=== PATIENT | male | born 1945 | race Asian ===

== ENCOUNTER 2021-08-24 09:41 | Inpatient (IN) | payer OTHER ==
[2021-08-24] MEDS ORDERED: SODIUM CHLORIDE 0.9% 500 ML INFUS.BAG IV ONE ×2 (10:07→13:26)
[2021-08-24] MEDS ORDERED: ONDANSETRON 4 MG/2 ML VIAL IVPUSH ONE ×2 (10:07→12:44)
[2021-08-24] MEDS ORDERED: ACETAMINOPHEN 1000 MG/100 ML BAG IVPB ONE (10:07)
[2021-08-24] MEDS ORDERED: ACETAMINOPHEN INJECTION 100 ML IVPB ONE (10:18)
[2021-08-24] MEDS ORDERED: ONDANSETRON 4 MG/2 ML VIAL ONE ×2 (10:18→12:53)
[2021-08-24 10:40] LABS: BASO % 0.3 % (0-2.0); EOS % 0.3 % (0-4.5); HEMATOCRIT 36.8 % (35.4-49); HEMOGLOBIN 12.4 GM/dL (11.7-16.9); LYMPH % 6.2 % (8-40); MCH 32.5 pg (25.7-33.7); MCHC 33.6 g/dl (32.0-35.9); MEAN CELL VOLUME 96.7 fl (80-96); MEAN PLT VOLUME 7.2 fl (7.5-11.1); MONO % 4.3 % (3.8-10.2); NEUT % 88.9 % (42.8-82.8); PLATELET COUNT 410 10^3/uL (134-434); RBC 3.81 M/mm3 (4.00-5.60); RDW 13.9 % (11.9-15.9); WHITE BLOOD COUNT 13.6 K/mm3 (4.0-10.0)
[2021-08-24 11:05] LABS: CALCIUM 8.9 mg/dL (8.5-10.1)
[2021-08-24] MEDS ORDERED: morphine CARPU-JECT 4 MG/1 ML DISP.SYRIN IVPUSH ONE ×2 (11:29→15:23)
[2021-08-24 11:34] LABS: ALBUMIN 2.3 g/dl (3.4-5.0); BILIRUBIN,TOTAL 0.4 mg/dL (0.2-1); BLOOD UREA NITROGEN 30.2 mg/dL (7-18); CREATININE 1.1 mg/dL (0.55-1.3); MAGNESIUM 2.4 mg/dL (1.8-2.4); TOT PROT 6.3 g/dl (6.4-8.2)
[2021-08-24 11:41] LABS: LACTIC ACID 2.5 mmol/L (0.4-2.0)
[2021-08-24] MEDS ORDERED: morphine SULFATE 4 MG/ML VIAL ONE ×2 (11:51→15:42)
[2021-08-24] MEDS ORDERED: AZITHROMYCIN IVPB 500 MG in DEXTROSE 5%-WATER - 250 ML IVPB ONE (14:28)
[2021-08-24] MEDS ORDERED: CEFTRIAXONE 1 GM/50 ML BAG ONE (15:42)
[2021-08-24] MEDS ORDERED: AZITHROMYCIN IVPB 500 MG/250 ML BAG IVPB ONE (16:11)
[2021-08-24] MEDS ORDERED: ACETAMINOPHEN 325 MG TABLET (FP) PO PRN (17:41)
[2021-08-25] MEDS: LEVOTHYROXINE NA 25 MCG TABLET (FP) PO SCH (08:26)
[2021-08-25] MEDS: TAMSULOSIN HCL 0.4 MG CAP PO SCH (08:26)
[2021-08-25 09:14] LABS: HEMATOCRIT 33.2 % (35.4-49); HEMOGLOBIN 11.4 GM/dL (11.7-16.9); MCHC 34.5 g/dl (32.0-35.9); MEAN CELL VOLUME 95.6 fl (80-96); MEAN PLT VOLUME 7.2 fl (7.5-11.1); PLATELET COUNT 337 10^3/uL (134-434); RBC 3.47 M/mm3 (4.00-5.60); RDW 13.4 % (11.9-15.9); WHITE BLOOD COUNT 19.4 K/mm3 (4.0-10.0)
[2021-08-25 09:34] LABS: CREATININE 0.9 mg/dL (0.55-1.3)
[2021-08-25 09:36] LABS: BILIRUBIN,TOTAL 0.3 mg/dL (0.2-1); TOT PROT 5.3 g/dl (6.4-8.2)
[2021-08-25] MEDS ORDERED: CEFTRIAXONE 1,000 MG in DEXTROSE 5%-WATER - 50 ML IVPB SCH (10:00)
[2021-08-25] MEDS ORDERED: AZITHROMYCIN 250 MG TABLET PO SCH ×2 (10:00)
[2021-08-25] MEDS ORDERED: TRIMETHOBENZAMIDE HCL 200MG/2ML INJ IM PRN (10:00)
[2021-08-25 10:09] LABS: ALBUMIN 1.6 g/dl (3.4-5.0); CALCIUM 7.5 mg/dL (8.5-10.1)
[2021-08-25] MEDS ORDERED: DEXTROSE 5%-WATER - 50 ML IVPB ONE (10:11)
[2021-08-25] MEDS ORDERED: cefTRIAXone SODIUM 1 GM VIAL ONE (10:11)
[2021-08-25] MEDS: ENOXAPARIN NA (PORCINE) 40 MG/0.4 ML DISP.SYRIN SQ SCH (10:37)
[2021-08-25] MEDS: amLODIPine BESYLATE 10 MG TABLET (FP) PO SCH (10:37)
[2021-08-25] MEDS: LOSARTAN POTASSIUM 50 MG TABLET PO SCH (10:37)
[2021-08-25] MEDS: ACETAMINOPHEN 1000 MG/100 ML BAG IVPB PRN ×2 (10:37→17:24)
[2021-08-25] MEDS: CEFTRIAXONE 1 GM in DEXTROSE 5%-WATER - 50 ML IVPB SCH (11:07)
[2021-08-25 11:38] LABS: EPI CELLS 20 /uL (0-25.1); HYALINE CASTS 7 /uL (0-3.1); URINE APPEARANCE CLEAR; URINE BACTERIA 5 /uL (0-1359); URINE BILIRUBIN NEGATIVE (NEGATIVE); URINE COLOR YELLOW; URINE GLUCOSE (UA) NEGATIVE (NEGATIVE); URINE KETONE NEGATIVE (NEGATIVE); URINE LEUK ESTERASE NEGATIVE (NEGATIVE); URINE NITRITE NEGATIVE (NEGATIVE); URINE PROTEIN 3+ (NEGATIVE); URINE RBC 10 /uL (0-23.9); URINE UROBILINOGEN 0.2 mg/dL (0.2-1.0); URINE WBC 8 /uL (0-25.8)
[2021-08-25] MEDS ORDERED: SODIUM CHLORIDE 1,000 ML IV SCH (12:15)
[2021-08-25] MEDS: ATORVASTATIN CA 20 MG TABLET (FP) PO SCH (21:17)
[2021-08-26] MEDS: LEVOTHYROXINE NA 25 MCG TABLET (FP) PO SCH (06:07)
[2021-08-26] MEDS: TAMSULOSIN HCL 0.4 MG CAP PO SCH (06:07)
[2021-08-26 09:05] LABS: HEMATOCRIT 32.9 % (35.4-49); HEMOGLOBIN 11.1 GM/dL (11.7-16.9); MCH 32.2 pg (25.7-33.7); MCHC 33.6 g/dl (32.0-35.9); MEAN CELL VOLUME 95.9 fl (80-96); MEAN PLT VOLUME 7.3 fl (7.5-11.1); PLATELET COUNT 351 10^3/uL (134-434); RBC 3.43 M/mm3 (4.00-5.60); RDW 13.7 % (11.9-15.9)
[2021-08-26] MEDS ORDERED: cefTRIAXone SODIUM 1 GM VIAL ONE (09:16)
[2021-08-26] MEDS ORDERED: DEXTROSE 5%-WATER - 50 ML IVPB ONE (09:16)
[2021-08-26] MEDS: LOSARTAN POTASSIUM 50 MG TABLET PO SCH (09:20)
[2021-08-26] MEDS: amLODIPine BESYLATE 10 MG TABLET (FP) PO SCH (09:20)
[2021-08-26] MEDS: CEFTRIAXONE 1 GM in DEXTROSE 5%-WATER - 50 ML IVPB SCH (09:20)
[2021-08-26 09:33] LABS: CALCIUM 7.5 mg/dL (8.5-10.1)
[2021-08-26 09:36] LABS: CREATININE 0.9 mg/dL (0.55-1.3)
[2021-08-26] MEDS ORDERED: POTASSIUM CHLORIDE TABS 20 MEQ TABLET.ER (FP) PO ONE ×2 (15:25→22:00)
[2021-08-26] MEDS ORDERED: ACETAMINOPHEN 500 MG TABLET (FP) PO PRN (15:27)
[2021-08-26] MEDS: AZITHROMYCIN 500 MG TABLET PO SCH (15:58)
[2021-08-26] MEDS ORDERED: LACTATED RINGERS SOLUTION 1,000 ML/1,000 ML INFUS.BAG IV SCH (17:00)
[2021-08-26] MEDS: oxyCODONE HCL 5 MG TABLET PO PRN (18:39)
[2021-08-26] MEDS: ATORVASTATIN CA 20 MG TABLET (FP) PO SCH (21:16)
[2021-08-26] MEDS: LACTOBACILLUS ACIDOPHILUS 1 TABLET PO SCH (21:17)
[2021-08-27] MEDS: TAMSULOSIN HCL 0.4 MG CAP PO SCH (06:08)
[2021-08-27] MEDS: LEVOTHYROXINE NA 25 MCG TABLET (FP) PO SCH (06:08)
[2021-08-27 09:11] LABS: BLOOD UREA NITROGEN 14.7 mg/dL (7-18); CALCIUM 7.9 mg/dL (8.5-10.1); MAGNESIUM 2.3 mg/dL (1.8-2.4)
[2021-08-27 09:12] LABS: HEMATOCRIT 30.8 % (35.4-49); HEMOGLOBIN 10.6 GM/dL (11.7-16.9); MCH 32.8 pg (25.7-33.7); MCHC 34.3 g/dl (32.0-35.9); MEAN CELL VOLUME 95.7 fl (80-96); MEAN PLT VOLUME 7.3 fl (7.5-11.1); PLATELET COUNT 346 10^3/uL (134-434); RBC 3.22 M/mm3 (4.00-5.60); RDW 13.5 % (11.9-15.9); WHITE BLOOD COUNT 15.4 K/mm3 (4.0-10.0)
[2021-08-27 09:14] LABS: PHOSPHOROUS 2.3 mg/dL (2.5-4.9)
[2021-08-27] MEDS ORDERED: DEXTROSE 5%-WATER - 50 ML IVPB ONE (10:07)
[2021-08-27] MEDS ORDERED: cefTRIAXone SODIUM 1 GM VIAL ONE (10:07)
[2021-08-27] MEDS: AZITHROMYCIN 500 MG TABLET PO SCH (10:16)
[2021-08-27] MEDS: LACTOBACILLUS ACIDOPHILUS 1 TABLET PO SCH ×2 (10:16→21:39)
[2021-08-27] MEDS: amLODIPine BESYLATE 10 MG TABLET (FP) PO SCH (10:16)
[2021-08-27] MEDS: LOSARTAN POTASSIUM 50 MG TABLET PO SCH (10:16)
[2021-08-27 10:57] LABS: N-TERMINAL BNP 1456.6 pg/ml (5-450)
[2021-08-27] MEDS ORDERED: FUROSEMIDE 40 MG/4 ML INJECTABLE VIAL IVPUSH ONE (11:00)
[2021-08-27] MEDS: CEFTRIAXONE 1 GM in DEXTROSE 5%-WATER - 50 ML IVPB SCH (12:34)
[2021-08-27] MEDS: oxyCODONE HCL 5 MG TABLET PO PRN (13:52)
[2021-08-27] MEDS ORDERED: SODIUM PHOSPHATE - 15 MM in SODIUM CHLORIDE 250 ML IVPB ONE (18:00)
[2021-08-27] MEDS: ENOXAPARIN NA (PORCINE) 40 MG/0.4 ML DISP.SYRIN SQ SCH (18:21)
[2021-08-27] MEDS: ATORVASTATIN CA 20 MG TABLET (FP) PO SCH (21:39)
[2021-08-28] MEDS: TAMSULOSIN HCL 0.4 MG CAP PO SCH (06:05)
[2021-08-28] MEDS: LEVOTHYROXINE NA 25 MCG TABLET (FP) PO SCH (06:05)
[2021-08-28 08:58] LABS: BASO % 0.4 % (0-2.0); EOS % 1.4 % (0-4.5); HEMATOCRIT 32.5 % (35.4-49); HEMOGLOBIN 11.4 GM/dL (11.7-16.9); LYMPH % 14.7 % (8-40); MCH 33.1 pg (25.7-33.7); MCHC 35.1 g/dl (32.0-35.9); MEAN CELL VOLUME 94.4 fl (80-96); MONO % 5.3 % (3.8-10.2); NEUT % 78.2 % (42.8-82.8); PLATELET COUNT 335 10^3/uL (134-434); RBC 3.44 M/mm3 (4.00-5.60); RDW 13.7 % (11.9-15.9); WHITE BLOOD COUNT 10.6 K/mm3 (4.0-10.0)
[2021-08-28 09:13] LABS: BLOOD UREA NITROGEN 12.1 mg/dL (7-18)
[2021-08-28 09:15] LABS: CALCIUM 7.4 mg/dL (8.5-10.1)
[2021-08-28 09:16] LABS: CREATININE 0.9 mg/dL (0.55-1.3); MAGNESIUM 2.1 mg/dL (1.8-2.4); PHOSPHOROUS 2.9 mg/dL (2.5-4.9)
[2021-08-28] MEDS ORDERED: cefTRIAXone SODIUM 1 GM VIAL ONE (10:56)
[2021-08-28] MEDS ORDERED: DEXTROSE 5%-WATER - 50 ML IVPB ONE (10:56)
[2021-08-28] MEDS: LACTOBACILLUS ACIDOPHILUS 1 TABLET PO SCH ×2 (10:59→22:05)
[2021-08-28] MEDS: amLODIPine BESYLATE 10 MG TABLET (FP) PO SCH (10:59)
[2021-08-28] MEDS: LOSARTAN POTASSIUM 50 MG TABLET PO SCH (10:59)
[2021-08-28] MEDS: ENOXAPARIN NA (PORCINE) 40 MG/0.4 ML DISP.SYRIN SQ SCH (10:59)
[2021-08-28] MEDS: AZITHROMYCIN 500 MG TABLET PO SCH (11:04)
[2021-08-28] MEDS: CEFTRIAXONE 1 GM in DEXTROSE 5%-WATER - 50 ML IVPB SCH (12:40)
[2021-08-28 15:08] LABS: SARS-CoV-2 NAA Not Detected (Not Detected)
[2021-08-28] MEDS: ATORVASTATIN CA 20 MG TABLET (FP) PO SCH (22:05)
[2021-08-29] MEDS: TAMSULOSIN HCL 0.4 MG CAP PO SCH (06:38)
[2021-08-29] MEDS: LEVOTHYROXINE NA 25 MCG TABLET (FP) PO SCH (06:38)
[2021-08-29 08:59] LABS: BASO % 0.7 % (0-2.0); EOS % 2.2 % (0-4.5); HEMATOCRIT 35.3 % (35.4-49); HEMOGLOBIN 12.1 GM/dL (11.7-16.9); MCH 32.5 pg (25.7-33.7); MCHC 34.2 g/dl (32.0-35.9); MEAN PLT VOLUME 7.2 fl (7.5-11.1); MONO % 6.7 % (3.8-10.2); NEUT % 68.4 % (42.8-82.8); PLATELET COUNT 369 10^3/uL (134-434); RBC 3.72 M/mm3 (4.00-5.60); RDW 13.6 % (11.9-15.9); WHITE BLOOD COUNT 7.7 K/mm3 (4.0-10.0)
[2021-08-29 09:17] LABS: CALCIUM 7.6 mg/dL (8.5-10.1)
[2021-08-29 09:18] LABS: BLOOD UREA NITROGEN 9.4 mg/dL (7-18); MAGNESIUM 1.9 mg/dL (1.8-2.4)
[2021-08-29 09:20] LABS: CREATININE 0.8 mg/dL (0.55-1.3); PHOSPHOROUS 2.4 mg/dL (2.5-4.9)
[2021-08-29 09:22] LABS: BILIRUBIN,TOTAL 0.3 mg/dL (0.2-1); TOT PROT 5.2 g/dl (6.4-8.2)
[2021-08-29 09:23] LABS: ALBUMIN 1.9 g/dl (3.4-5.0)
[2021-08-29] MEDS ORDERED: cefTRIAXone SODIUM 1 GM VIAL ONE (10:57)
[2021-08-29] MEDS ORDERED: DEXTROSE 5%-WATER - 50 ML IVPB ONE (10:57)
[2021-08-29] MEDS: LOSARTAN POTASSIUM 50 MG TABLET PO SCH (11:00)
[2021-08-29] MEDS: amLODIPine BESYLATE 10 MG TABLET (FP) PO SCH (11:00)
[2021-08-29] MEDS: ENOXAPARIN NA (PORCINE) 40 MG/0.4 ML DISP.SYRIN SQ SCH (11:00)
[2021-08-29] MEDS ORDERED: POTASSIUM CHLORIDE TABS 20 MEQ TABLET.ER (FP) PO SCH ×2 (11:00→22:00)
[2021-08-29] MEDS: CEFTRIAXONE 1 GM in DEXTROSE 5%-WATER - 50 ML IVPB SCH (11:00)
[2021-08-29] MEDS: LACTOBACILLUS ACIDOPHILUS 1 TABLET PO SCH ×2 (11:01→22:18)
[2021-08-29] MEDS ORDERED: AZITHROMYCIN IVPB 500 MG/250 ML BAG IVPB SCH (14:15)
[2021-08-29] MEDS: ENALAPRIL MALEATE 10 MG TABLET PO SCH (16:03)
[2021-08-29] MEDS: ATORVASTATIN CA 20 MG TABLET (FP) PO SCH (22:19)
[2021-08-30] MEDS: LEVOTHYROXINE NA 25 MCG TABLET (FP) PO SCH (06:03)
[2021-08-30] MEDS: TAMSULOSIN HCL 0.4 MG CAP PO SCH (06:03)
[2021-08-30 08:28] LABS: HEMATOCRIT 35.6 % (35.4-49); HEMOGLOBIN 11.9 GM/dL (11.7-16.9); MCH 32.1 pg (25.7-33.7); MCHC 33.5 g/dl (32.0-35.9); MEAN CELL VOLUME 95.8 fl (80-96); MEAN PLT VOLUME 7.2 fl (7.5-11.1); PLATELET COUNT 366 10^3/uL (134-434); RBC 3.71 M/mm3 (4.00-5.60); RDW 13.9 % (11.9-15.9); WHITE BLOOD COUNT 8.4 K/mm3 (4.0-10.0)
[2021-08-30 08:50] LABS: BLOOD UREA NITROGEN 9.4 mg/dL (7-18)
[2021-08-30 08:52] LABS: PHOSPHOROUS 2.2 mg/dL (2.5-4.9)
[2021-08-30 08:53] LABS: CREATININE 0.9 mg/dL (0.55-1.3)
[2021-08-30 09:40] LABS: ANISOCYTOSIS 0; MACROCYTOSIS 0
[2021-08-30] MEDS ORDERED: SODIUM PHOSPHATE - 15 MM in SODIUM CHLORIDE 250 ML IVPB ONE (10:00)
[2021-08-30] MEDS ORDERED: cefTRIAXone SODIUM 1 GM VIAL ONE (10:59)
[2021-08-30] MEDS ORDERED: DEXTROSE 5%-WATER - 50 ML IVPB ONE (10:59)
[2021-08-30] MEDS: CEFTRIAXONE 1 GM in DEXTROSE 5%-WATER - 50 ML IVPB SCH (11:06)
[2021-08-30] MEDS: LACTOBACILLUS ACIDOPHILUS 1 TABLET PO SCH (11:07)
[2021-08-30] MEDS: LOSARTAN POTASSIUM 50 MG TABLET PO SCH (11:07)
[2021-08-30] MEDS: ENOXAPARIN NA (PORCINE) 40 MG/0.4 ML DISP.SYRIN SQ SCH (11:07)
[2021-08-30] MEDS: ENALAPRIL MALEATE 10 MG TABLET PO SCH (11:08)
[2021-08-30] MEDS: amLODIPine BESYLATE 10 MG TABLET (FP) PO SCH (11:08)
[2021-08-30 11:21] VITALS: BMI 25.4
[2021-08-30 16:08] LABS: ATYPICAL pANCA <1:20 titer (Neg:<1:20); C-ANCA <1:20 titer (Neg:<1:20)
[2021-08-30 16:38] VITALS: BP 127/66; PULSE 77; TEMP 97.4
[2021-08-31 00:06] LABS: CYCLIC CITRULLINE PEPTIDE AB 5 units (0-19)
== END 2021-08-30 19:09 | disposition home or self-care (01) | DRG 391 ==
LOC: JER 09:41 → JERBED 15:23 → J8W 18:33
PROVIDERS: ADMIT Internal Medicine; ATTEND Internal Medicine
DX: K52.9 Noninfective gastroenteritis and colitis, unspecified (principal); J69.0 Pneumonitis due to inhalation of food and vomit; C78.00 Secondary malignant neoplasm of unspecified lung; J90 Pleural effusion, not elsewhere classified; E87.2 Acidosis; E86.0 Dehydration; D72.829 Elevated white blood cell count, unspecified; R10.13 Epigastric pain; R80.9 Proteinuria, unspecified; E03.9 Hypothyroidism, unspecified; N40.0 Benign prostatic hyperplasia without lower urinary tract symptoms; E78.5 Hyperlipidemia, unspecified; I10 Essential (primary) hypertension
CPT/HCPCS: 36415; 71045-TC-FY; 71046-TC-FY; 71250-TC; 74177-TC; 76775-TC; 80048; 80053; 81003; 82378; 82550; 82570; 83516; 83520; 83605; 83690; 83735; 83880; 84100; 84155; 84156; 84165; 84443; 85025; 85027; 85651; 86038; 86140; 86200; 86256; 86431; 86480; 86803; 87040; 87045; 87046; 87070; 87086; 87177; 87205; 87209; 87324; 87340; 87449; 87517; 87899; 93005; 93010; 93306-TC; 94010; 97116-GP; 97161-GP; 99285-25; C9803-CS; Q9967; U0003; U0005